=== PATIENT | male | born 1955 | race Caucasian/White ===

== ENCOUNTER 2020-02-06 08:47 | Emergency (ER) | payer OTHER ==
--- NOTE | 2020-02-06 11:05 | EDM.PDOC ---
ED HPI GENERAL MEDICAL PROBLEM - General Stated Complaint: COVID SYMPTOMS Time Seen by Provider: 02/06/20 09:45 Source of Information: Reports: Patient History Limitations: Reports: No Limitations - History of Present Illness INITIAL COMMENTS - FREE TEXT/NARRATIVE: Patient seen for swabbing for Covid. Patient was exposed on 01/22 by the hairdresser. Notified on 01/23 and quarantined since then. He was tested on 01/29 but was negative and then on 01/30 started to have symptoms of fever and malaise. He notes loss of smell and taste on 02/02. Tested positive today and counseled on isolation until Feb 10. Discussed continued isolation if symptoms persist and then contact hospital. Contact hospital if any worsening changes. ED ROS GENERAL - Review of Systems Review Of Systems: Comprehensive ROS is negative, except as noted in HPI. ED EXAM, GENERAL - Physical Exam Exam: Not Obtained Course - Orders/Labs/Meds Labs: Laboratory Tests 02/06/20 Range/Units 10:00 SARS CoV-2 RNA Rapid HAYLEE Positive H Departure - Departure Time of Disposition: 10:00 Disposition: Home, Self-Care 01 Clinical Impression: Lab test positive for detection of COVID-19 virus - Discharge Information
== END 2020-02-06 10:00 | disposition home or self-care (01) ==
LOC: LB.ED 08:47
DX: U07.1 COVID-19 (principal)
CPT/HCPCS: 99282; U0002